=== PATIENT | male | born 1990 | race Two or more races ===

== ENCOUNTER 2017-03-17 16:58 | Emergency (ER) | payer BC ==
[~2017-03-17] VITALS: Ht 175.3 cm; Wt 79.4 kg
[2017-03-17 17:20] VITALS: BP 120/59
[2017-03-17] MEDS ORDERED: IPRATROPIUM BROM 0.5 MG/2.5ML INH SOL NEB ONE (17:45)
[2017-03-17] MEDS ORDERED: ALBUTEROL SULF 2.5 MG/0.5ML(0.5%) NEB SOLN NEB ONE (17:45)
== END 2017-03-17 18:23 | disposition home or self-care (01) ==
LOC: ER 17:08
DX: J20.9 Acute bronchitis, unspecified (principal); J01.90 Acute sinusitis, unspecified
CPT/HCPCS: 71020; 94640